=== PATIENT | female | born 1955 | race Caucasian/White ===

== ENCOUNTER 2023-12-30 14:32 | Emergency (ER) | payer OTHER, MEDICAID ==
[~2023-12-30] VITALS: Ht 167.6 cm; Wt 68.0 kg
[2023-12-30 14:56] VITALS: BP 147/92; PULSE 69; RESP 18; TEMP 97.9; O2SAT 100
[2023-12-30] MEDS ORDERED: IBUP-2213 PO (15:50)
[2023-12-30 16:02] VITALS: BP 145/92; PULSE 66; RESP 16; TEMP 98; O2SAT 99
== END 2023-12-30 16:02 | disposition home or self-care (01) ==
LOC: MED 14:32
DX: S62.616A Displaced fracture of proximal phalanx of right little finger, initial encounter for closed fracture (principal); Z79.899 Other long term (current) drug therapy; W01.198A Fall on same level from slipping, tripping and stumbling with subsequent striking against other object, initial encounter; Y93.89 Activity, other specified; Y92.89 Other specified places as the place of occurrence of the external cause; Y99.8 Other external cause status
CPT/HCPCS: 73130; 99283

== ENCOUNTER 2024-01-02 10:05 | Emergency (ER) | payer OTHER, MEDICAID ==
[~2024-01-02] VITALS: Ht 167.6 cm; Wt 65.5 kg
[~2024-01-02 10:05] MED LIST: IBUP-2213 PO
[2024-01-02 10:18] VITALS: BP 169/80; PULSE 71; RESP 18; TEMP 98.4; O2SAT 98
[2024-01-02] MEDS ORDERED: ACET-6951 PO (10:45)
[2024-01-02] MEDS ORDERED: AMLO5TAB PO (10:45)
== END 2024-01-02 10:55 | disposition home or self-care (01) ==
LOC: MED 10:05
DX: S62.606A Fracture of unspecified phalanx of right little finger, initial encounter for closed fracture (principal); J44.9 Chronic obstructive pulmonary disease, unspecified; I10 Essential (primary) hypertension; Z88.0 Allergy status to penicillin; Z79.82 Long term (current) use of aspirin; Z79.899 Other long term (current) drug therapy; X58.XXXA Exposure to other specified factors, initial encounter; Y93.89 Activity, other specified; Y92.89 Other specified places as the place of occurrence of the external cause; Y99.8 Other external cause status
CPT/HCPCS: 99283